=== PATIENT | female | born 1960 | race Caucasian/White ===

== ENCOUNTER 2016-09-20 08:20 | Emergency (ER) | payer BC, OTHER ==
[2016-09-20] MEDS ORDERED: Sodium Chloride 0.9% 1,000 ML ONE (08:44)
[2016-09-20] MEDS ORDERED: Ondansetron HCl/PF 4 MG/2 ML Vial ONE (08:44)
[2016-09-20 08:50] LABS: #Basophils 0.2 thou/uL (0.0-0.2); #Eosinphils 0.1 thou/uL (0.0-0.7); #Lymphocytes 3.2 thou/uL (1.20-3.40); #Neutrophils 10.2 thou/uL (1.40-6.50); %Eosinophils 0.9 % (0.0-10.0); %Lymphocytes 21.6 % (21.0-51.0); %Monocytes 7.1 % (0.0-10.0); %Neutrophils 69.3 % (42.0-75.0); Hemoglobin 16.2 g/dL (12.0-16.0); Mean Corpuscular HGB CONC 33.1 g/dL (32.0-36.0); Mean Corpuscular Hemoglobin 29.6 pg (27.0-31.0); Mean Corpuscular Volume 89.2 fl (81.0-99.0); Platelet Count 189 thou/uL (130-400); RBC Distribution Width 13.1 % (11.5-14.5); White Blood Cell (WBC) Count 14.7 thou/uL (4.8-10.8)
[2016-09-20] MEDS ORDERED: Iopamidol 370 76% 100 ML VIAL ONE (09:00)
[2016-09-20 09:07] LABS: ALT (SGPT) 13 U/L (0-55); AST (SGOT) 15 U/L (5-34); Albumin 3.9 g/dL (3.5-5.0); Alkaline Phosphatase 28 U/L (40-150); Amylase 71 U/L (25-125); Anion Gap 13 mmol/L (10-20); BUN (Urea Nitrogen) 13 mg/dL (9.8-20.1); Bilirubin, Total 0.4 mg/dL (0.2-1.2); CK (CPK) 16 U/L (29-168); Calc. Creatinine Clearance 0 mL/min (70-130); Calcium 8.6 mg/dL (7.8-10.44); Carbon Dioxide 22 mmol/L (22-29); Chloride 107 mmol/L (98-107); Estimated GFR-MDRD 77; Globulin 3.5 g/dL (2.4-3.5); Glucose 102 mg/dL (70-105); Lipase 87 U/L (8-78); Potassium 4.2 mmol/L (3.5-5.1); Protein, Total 7.4 g/dL (6.0-8.3); Sodium 138 mmol/L (136-145)
[2016-09-20 09:08] LABS: CKMB 0.5 ng/mL (0-6.6); Troponin I Less than 0.010 ng/mL (< 0.028)
--- NOTE | 2016-09-20 11:09 | CT ---
EXAM: ABDOMEN CT WITH CONTRAST PELVIC CT WITH CONTRAST: HISTORY: Abdominal and back pain. Nausea. Weakness, onset 5 days ago. COMPARISON: None. TECHNIQUE: Abdomen and pelvic CT are performed with IV contrast. Oral contrast was not administered. Coronal reformatted images are submitted for interpretation. FINDINGS: ABDOMEN CT: Chronic changes of the lung bases. Heart size is normal. No pericardial effusion. The descending thoracic aorta and abdominal aorta have a normal caliber. No periaortic fat stranding. Symmetric attenuation of the psoas muscles. No gastrohepatic, retrocrural, or periportal lymphadenopathy. Intra- and extrahepatic portal vein is patent. Hypodense nodule associated with the left adrenal gland with attenuation coefficient of 7 Hounsfield units. There is a 1.7 x 1.2 cm adenoma. Right adrenal gland is unremarkable. The spleen and panc reas have appropriate enhancement. There is no CT evidence of pancreatitis. Symmetric enhancement of the kidneys. Bilaterally, no obstructive uropathy. There are multiple enhancing masses involving the hepatic parenchyma. The largest lesion is in the posterior segment of the right hepatic lobe, measuring 4. X 5.3 cm. A second lesion in the right pe dicle measures 3.0 x 3.0 cm. There is a lesion in the left hepatic lobe, measuring 2.1 x 1.7 cm. A dditional smaller lesions are identified. No mesenteric mass, lymphadenopathy, free air, or free fluid. Limited evaluation of the alimentary canal due to the lack of oral contrast. Gastric mucosa, duoden um, and small bowel loops are grossly unremarkable. Ileocecal junction is normal. Normal-caliber a ppendix. Nonspecific calcification of the mesentery adjacent to the appendix, likely due to remote insult. There is evidence of diverticulosis, without evidence of diverticulitis. PELVIC CT: Uterus and adnexa are grossly unremarkable. Trace amount of free fluid in the pelvis. No mass, lym phadenopathy, or free air. There are no osteoblastic or osteolytic lesions. IMPRESSION: 1. Multiple hepatic masses, worrisome for malignancy. History states that the patient is seen at [facility]. Correlate with patient's past medical history. 2. No CT evidence of pancreatitis. POS: [facility]
== END 2016-09-20 11:31 | disposition home or self-care (01) ==
LOC: NAV ERS 08:20
DX: K76.89 Other specified diseases of liver (principal); K21.9 Gastro-esophageal reflux disease without esophagitis; I10 Essential (primary) hypertension; J45.909 Unspecified asthma, uncomplicated; F32.9 Major depressive disorder, single episode, unspecified; Z87.891 Personal history of nicotine dependence; Z79.899 Other long term (current) drug therapy
CPT/HCPCS: 36415; 74177; 80053; 82150; 82550; 82553; 83690; 84484; 85025; 93005; 96374; 96375; J2270; J2405; J7050

== ENCOUNTER 2016-12-16 12:56 | Emergency (ER) | payer BC ==
[~2016-12-16 12:56] MED LIST: Iopamidol 370 76% 100 ML VIAL ONE
[2016-12-16] MEDS ORDERED: Nitroglycerin 0.4 MG TAB (25 Tab Bottle) ONE (13:17)
[2016-12-16 13:46] LABS: ALT (SGPT) 12 U/L (8-55); AST (SGOT) 18 U/L (5-34); Albumin 3.9 g/dL (3.5-5.0); Alkaline Phosphatase 25 U/L (40-150); Anion Gap 15 mmol/L (10-20); BUN (Urea Nitrogen) 13 mg/dL (9.8-20.1); Bilirubin, Total 0.3 mg/dL (0.2-1.2); CK (CPK) 30 U/L (29-168); Calc. Creatinine Clearance 0 mL/min (70-130); Calcium 9.1 mg/dL (7.8-10.44); Carbon Dioxide 22 mmol/L (22-29); Chloride 108 mmol/L (98-107); Estimated GFR-MDRD 74; Globulin 3.2 g/dL (2.4-3.5); Glucose 87 mg/dL (70-105); Potassium 4.1 mmol/L (3.5-5.1); Protein, Total 7.1 g/dL (6.0-8.3); Sodium 141 mmol/L (136-145)
[2016-12-16 13:47] LABS: CKMB 0.8 ng/mL (0-6.6); Troponin I Less than 0.010 ng/mL (< 0.028)
[2016-12-16 13:51] LABS: #Basophils 0.1 thou/uL (0.0-0.2); #Eosinphils 0.4 thou/uL (0.0-0.7); #Lymphocytes 2.9 thou/uL (1.20-3.40); #Monocytes 0.7 thou/uL (0.11-0.59); #Neutrophils 6.7 thou/uL (1.40-6.50); %Basophils 1.4 % (0.0-1.0); %Eosinophils 3.9 % (0.0-10.0); %Lymphocytes 26.4 % (21.0-51.0); %Monocytes 6.6 % (0.0-10.0); %Neutrophils 61.7 % (42.0-75.0); Hemoglobin 16.2 g/dL (12.0-16.0); Mean Corpuscular HGB CONC 33.3 g/dL (32.0-36.0); Mean Corpuscular Volume 87.2 fl (81.0-99.0); Mean Platelet Volume 7.9 fL (7.4-10.4); Platelet Count 159 thou/uL (130-400); RBC Distribution Width 11.4 % (11.5-14.5); Red Blood Cell (RBC) Count 5.57 mill/uL (4.20-5.40); White Blood Cell (WBC) Count 10.8 thou/uL (4.8-10.8)
--- NOTE | 2016-12-16 14:54 | RAD ---
RADIOGRAPH CHEST 1 VIEW: HISTORY: A 56-year-old female with acute mid sternal chest pain. FINDINGS: There is hyperinflation of the lungs, consistent with COPD. There is no evidence of air space densi ty, pneumothorax, or pulmonary edema. The lateral costophrenic angles are sharp. IMPRESSION: 1) No acute pulmonary findings. 2) Emphysema. jackie [] POS: [facility]
--- NOTE | 2016-12-16 16:28 | CT ---
CT ANGIOGRAM THORAX WITH IV CONTRAST AND 3D RECONSTRUCTIONS 12/16/2016 HISTORY: Mid sternal chest pain, which started in . The patient states the pain is getting worse and started approximately four hours ago. FINDINGS: No filling defects are see in the pulmonary arteries to suggest a pulmonary embolus. The thoracic a jaime is normal in caliber without evidence of an aortic dissection. There are mild emphysematous changes within the lungs bilaterally, greater in the upper lobes. Ther e is bibasilar atelectasis. No discrete pulmonary nodule, mass, or pleural effusion is seen. There is a hypodense mass, incompletely imaged or evaluated, in the right hepatic lobe. The margins of the mass are difficult to discern on this examination, but the mass measures approximately 4.7 c m. Multiple hypodense masses were seen in each lobe of the liver on prior CT abdomen on 09/20/2016. Additional hypodense masses on this exam are not as well seen, although there is a hypodense mass with slight increased density surrounding a lesion in the most superior-anterior aspect of the later al segment of the left hepatic lobe, also seen on prior exam. There is a hypodense, cystic appearing structure, measuring 1.5 cm, in the subcutaneous soft tissues , near the level of the skin surface, at the mid chest, which may represent a small sebaceous cyst. There is an additional increased density mass seen at the posterolateral aspect of the right upper chest, at the level of the body of the scapula, measuring 2.8 cm, which is incompletely imaged, but may represent a sebaceous cyst as well. IMPRESSION: 1. No CT evidence of a pulmonary embolus. 2. Multiple hypodense masses in the liver, better visualized on the prior scan on 09/20/2016, sugge sting metastatic disease. The mass in the right hepatic lobe does appear larger in size, although t he margins are indistinct on this exam due to phase of contrast enhancement. 3. Chronic obstructive pulmonary disease. 5. Stable left adrenal gland adenoma. 6. Hypodense amd hyperdense cystic structures in subcutaneous soft tissues posterior chest which ma y represent sebaceous cysts. POS: [facility]
== END 2016-12-16 15:50 | disposition short-term general hospital (02) ==
LOC: NAV ERS 12:56
DX: R07.9 Chest pain, unspecified (principal); K21.9 Gastro-esophageal reflux disease without esophagitis; I10 Essential (primary) hypertension; M06.9 Rheumatoid arthritis, unspecified; J45.909 Unspecified asthma, uncomplicated; F32.9 Major depressive disorder, single episode, unspecified; Z87.891 Personal history of nicotine dependence; Z79.899 Other long term (current) drug therapy
CPT/HCPCS: 36415; 71010; 71275; 80053; 82553; 84484; 85025; 93005; 94760; 96374; J2270

== ENCOUNTER 2017-01-07 14:42 | Outpatient (CLI) | payer BC ==
[2017-01-07 15:44] LABS: #Basophils 0.2 thou/uL (0.0-0.2); #Eosinphils 0.3 thou/uL (0.0-0.7); #Lymphocytes 3.1 thou/uL (1.20-3.40); #Neutrophils 7.2 thou/uL (1.40-6.50); %Basophils 1.4 % (0.0-1.0); %Eosinophils 2.4 % (0.0-10.0); %Lymphocytes 26.2 % (21.0-51.0); %Monocytes 8.6 % (0.0-10.0); %Neutrophils 61.4 % (42.0-75.0); Hemoglobin 16.1 g/dL (12.0-16.0); Mean Corpuscular HGB CONC 32.4 g/dL (32.0-36.0); Mean Corpuscular Hemoglobin 28.5 pg (27.0-31.0); Mean Corpuscular Volume 88.1 fl (81.0-99.0); Mean Platelet Volume 7.9 fL (7.4-10.4); Platelet Count 171 thou/uL (130-400); RBC Distribution Width 11.7 % (11.5-14.5); Red Blood Cell (RBC) Count 5.66 mill/uL (4.20-5.40); White Blood Cell (WBC) Count 11.7 thou/uL (4.8-10.8)
[2017-01-07 16:02] LABS: ALT (SGPT) 10 U/L (8-55); AST (SGOT) 18 U/L (5-34); Albumin 4.1 g/dL (3.5-5.0); Alkaline Phosphatase 31 U/L (40-150); Anion Gap 16 mmol/L (10-20); BUN (Urea Nitrogen) 12 mg/dL (9.8-20.1); Bilirubin, Total 0.6 mg/dL (0.2-1.2); Calc. Creatinine Clearance 0 mL/min (70-130); Calcium 9.5 mg/dL (7.8-10.44); Carbon Dioxide 24 mmol/L (22-29); Chloride 104 mmol/L (98-107); Estimated GFR-MDRD 78; Globulin 2.4 g/dL (2.4-3.5); Glucose 89 mg/dL (70-105); Lipase 5 U/L (8-78); Potassium 4.1 mmol/L (3.5-5.1); Protein, Total 6.5 g/dL (6.0-8.3); Sodium 140 mmol/L (136-145)
== END 2017-01-07 14:43 | disposition home or self-care (01) ==
LOC: NAV LAB 14:42 → NAV ERS 14:42 → NAV LAB 14:43
DX: R10.31 Right lower quadrant pain (principal)
CPT/HCPCS: 80053; 83690; 85025

== ENCOUNTER 2017-06-13 10:02 | Outpatient (CLI) | payer BC ==
[2017-06-13 10:43] LABS: ALT (SGPT) 18 U/L (8-55); AST (SGOT) 26 U/L (5-34); Albumin 3.6 g/dL (3.5-5.0); Alkaline Phosphatase 42 U/L (40-150); Anion Gap 16 mmol/L (10-20); BUN (Urea Nitrogen) 10 mg/dL (9.8-20.1); Bilirubin, Total 0.5 mg/dL (0.2-1.2); Calc. Creatinine Clearance 0 mL/min (70-130); Calcium 9.4 mg/dL (7.8-10.44); Carbon Dioxide 26 mmol/L (22-29); Chloride 101 mmol/L (98-107); Estimated GFR-MDRD 80; Globulin 3.3 g/dL (2.4-3.5); Glucose 85 mg/dL (70-105); Potassium 4.5 mmol/L (3.5-5.1); Protein, Total 6.9 g/dL (6.0-8.3); Sodium 138 mmol/L (136-145)
[2017-06-13 10:46] LABS: #Basophils 0.2 thou/uL (0.0-0.2); #Eosinphils 1.1 thou/uL (0.0-0.7); #Lymphocytes 1.9 thou/uL (1.20-3.40); #Monocytes 1.2 thou/uL (0.11-0.59); %Basophils 1.6 % (0.0-1.0); %Eosinophils 8.7 % (0.0-10.0); %Lymphocytes 15.4 % (21.0-51.0); %Monocytes 9.7 % (0.0-10.0); %Neutrophils 64.6 % (42.0-75.0); Hemoglobin 15.8 g/dL (12.0-16.0); Mean Corpuscular HGB CONC 32.5 g/dL (32.0-36.0); Mean Corpuscular Hemoglobin 27.8 pg (27.0-31.0); Mean Corpuscular Volume 85.6 fl (81.0-99.0); Mean Platelet Volume 9.4 fL (7.4-10.4); Platelet Count 185 thou/uL (130-400); RBC Distribution Width 11.8 % (11.5-14.5); White Blood Cell (WBC) Count 12.4 thou/uL (4.8-10.8)
--- NOTE | 2017-06-13 12:30 | RAD ---
RADIOGRAPH OF CHEST TWO VIEWS: INDICATIONS: Bronchitis. FINDINGS: There is interstitial prominence of each lung. No lobar consolidation or effusion. The cardiomedias tinal silhouette is normal in size. IMPRESSION: Interstitial prominence bilaterally. This could be on the basis of viral bronchiolitis and/or a comp onent of edema. Recommend imaging followup to confirm resolution. POS: [facility]
== END 2017-06-13 10:03 | disposition home or self-care (01) ==
LOC: NAV LAB 10:02
PROVIDERS: ATTEND Family Medicine
DX: J40 Bronchitis, not specified as acute or chronic (principal); J84.9 Interstitial pulmonary disease, unspecified
CPT/HCPCS: 36415; 71020; 80053; 85025

== ENCOUNTER 2017-07-01 10:01 | Emergency (ER) | payer BC ==
[2017-07-01] MEDS ORDERED: Sodium Chloride 0.9% 1,000 ML ONE ×2 (10:28→11:53)
[2017-07-01] MEDS ORDERED: Ondansetron HCl/PF 4 MG/2 ML Vial ONE ×2 (10:28→11:18)
[2017-07-01 10:46] LABS: #Basophils 0.2 thou/uL (0.0-0.2); #Eosinphils 0.8 thou/uL (0.0-0.7); #Lymphocytes 1.8 thou/uL (1.20-3.40); #Monocytes 1.1 thou/uL (0.11-0.59); #Neutrophils 4.9 thou/uL (1.40-6.50); %Basophils 2.2 % (0.0-1.0); %Eosinophils 8.9 % (0.0-10.0); %Lymphocytes 20.1 % (21.0-51.0); %Monocytes 12.9 % (0.0-10.0); %Neutrophils 55.9 % (42.0-75.0); Mean Corpuscular Hemoglobin 27.1 pg (27.0-31.0); Mean Corpuscular Volume 84.6 fl (81.0-99.0); Mean Platelet Volume 9.8 fL (7.4-10.4); Platelet Count 148 thou/uL (130-400); RBC Distribution Width 12.3 % (11.5-14.5); Red Blood Cell (RBC) Count 5.89 mill/uL (4.20-5.40); White Blood Cell (WBC) Count 8.9 thou/uL (4.8-10.8)
[2017-07-01 11:02] LABS: ALT (SGPT) 22 U/L (8-55); AST (SGOT) 41 U/L (5-34); Albumin 3.7 g/dL (3.5-5.0); Alkaline Phosphatase 38 U/L (40-150); Anion Gap 16 mmol/L (10-20); BUN (Urea Nitrogen) 20 mg/dL (9.8-20.1); Bilirubin, Total 0.6 mg/dL (0.2-1.2); CK (CPK) 10 U/L (29-168); CKMB 0.3 ng/mL (0-6.6); Calc. Creatinine Clearance 0 mL/min (70-130); Calcium 9.3 mg/dL (7.8-10.44); Carbon Dioxide 24 mmol/L (22-29); Chloride 99 mmol/L (98-107); Estimated GFR-MDRD 76; Globulin 3.5 g/dL (2.4-3.5); Glucose 103 mg/dL (70-105); Lipase 15 U/L (8-78); Potassium 4.7 mmol/L (3.5-5.1); Protein, Total 7.2 g/dL (6.0-8.3); Sodium 134 mmol/L (136-145); Troponin I Less than 0.010 ng/mL (< 0.028)
--- NOTE | 2017-07-01 11:38 | RAD ---
PA AND LATERAL VIEWS CHEST: HISTORY: Headache, body aches, cough. FINDINGS: Comparison is made with the exam of 06/13/17. The heart size is normal. The lungs are expanded without focal areas of consolidation, pneumothorax, or pleural effusions. Mild chronic changes are again seen. IMPRESSION: No radiographic evidence of acute cardiopulmonary process. POS: [facility]
[2017-07-01 11:55] LABS: Bilirubin Large (Negative); Blood, Urine Negative (Negative); Clarity Clear (Clear); Glucose, Urine (Dipstick) Negative (Negative); Leukocyte Negative (Negative); Nitrite Negative (Negative); Protein, Urine (Dipstick) Trace mg/dL (Neg-Trace); Specific Gravity, Urine 1.025 (1.005-1.030); Urobilinogen 0.2 mg/dL (0.2-1.0); pH, Urine 5.5 (5.0-9.0)
[2017-07-01] MEDS ORDERED: Oseltamivir 75 MG CAP ONE (12:20)
== END 2017-07-01 12:28 | disposition home or self-care (01) ==
LOC: NAV ERS 10:01
DX: J11.1 Influenza due to unidentified influenza virus with other respiratory manifestations (principal); R11.2 Nausea with vomiting, unspecified; I10 Essential (primary) hypertension; J45.909 Unspecified asthma, uncomplicated; F32.9 Major depressive disorder, single episode, unspecified; F17.210 Nicotine dependence, cigarettes, uncomplicated; Z79.899 Other long term (current) drug therapy
CPT/HCPCS: 36415; 71046; 80053; 81003; 82550; 82553; 83690; 84484; 85025; 96361; 96374; 96376; J2405; J7050

== ENCOUNTER 2017-08-12 05:29 | Emergency (ER) | payer BC ==
[2017-08-12] MEDS ORDERED: Ondansetron HCl/PF 4 MG/2 ML Vial ONE ×2 (05:41→05:43)
[2017-08-12 06:19] LABS: ALT (SGPT) 12 U/L (8-55); AST (SGOT) 34 U/L (5-34); Albumin 3.4 g/dL (3.5-5.0); Alkaline Phosphatase 46 U/L (40-150); Anion Gap 17 mmol/L (10-20); BUN (Urea Nitrogen) 11 mg/dL (9.8-20.1); Bilirubin, Total 0.6 mg/dL (0.2-1.2); Calc. Creatinine Clearance 0 mL/min (70-130); Calcium 9.2 mg/dL (7.8-10.44); Carbon Dioxide 25 mmol/L (22-29); Chloride 102 mmol/L (98-107); Estimated GFR-MDRD 78; Globulin 3.4 g/dL (2.4-3.5); Glucose 87 mg/dL (70-105); Lipase 7 U/L (8-78); Potassium 4.1 mmol/L (3.5-5.1); Protein, Total 6.8 g/dL (6.0-8.3); Sodium 140 mmol/L (136-145)
[2017-08-12 06:22] LABS: CKMB 0.7 ng/mL (0-6.6); Troponin I Less than 0.010 ng/mL (< 0.028)
[2017-08-12 06:58] LABS: #Basophils 0.3 thou/uL (0.0-0.2); #Eosinphils 0.3 thou/uL (0.0-0.7); #Lymphocytes 2.1 thou/uL (1.20-3.40); #Monocytes 1.3 thou/uL (0.11-0.59); %Basophils 2.1 % (0.0-1.0); %Eosinophils 2.2 % (0.0-10.0); %Lymphocytes 17.9 % (21.0-51.0); %Monocytes 10.7 % (0.0-10.0); %Neutrophils 67.1 % (42.0-75.0); Hemoglobin 15.7 g/dL (12.0-16.0); Mean Corpuscular HGB CONC 30.6 g/dL (32.0-36.0); Mean Corpuscular Hemoglobin 26.4 pg (27.0-31.0); Mean Corpuscular Volume 86.2 fl (81.0-99.0); Mean Platelet Volume 9.4 fL (7.4-10.4); Platelet Count 203 thou/uL (130-400); RBC Distribution Width 12.6 % (11.5-14.5); Red Blood Cell (RBC) Count 5.96 mill/uL (4.20-5.40); White Blood Cell (WBC) Count 11.8 thou/uL (4.8-10.8)
== END 2017-08-12 07:57 | disposition home or self-care (01) ==
LOC: NAV ERS 05:29
DX: E86.0 Dehydration (principal); R11.2 Nausea with vomiting, unspecified; R19.7 Diarrhea, unspecified; C90.00 Multiple myeloma not having achieved remission; C69.90 Malignant neoplasm of unspecified site of unspecified eye; C78.7 Secondary malignant neoplasm of liver and intrahepatic bile duct; F17.210 Nicotine dependence, cigarettes, uncomplicated; F32.9 Major depressive disorder, single episode, unspecified; I10 Essential (primary) hypertension; J45.909 Unspecified asthma, uncomplicated; M06.9 Rheumatoid arthritis, unspecified; Z79.899 Other long term (current) drug therapy; Z71.6 Tobacco abuse counseling
CPT/HCPCS: 80053; 82553; 83690; 84484; 85025; 96361; 96374; J2405

== ENCOUNTER 2017-09-08 09:43 | Emergency (ER) | payer BC ==
[2017-09-08] MEDS ORDERED: Sodium Chloride 0.9% 1,000 ML ONE (10:31)
[2017-09-08 10:48] LABS: Bilirubin Large (Negative); Blood, Urine Negative (Negative); Clarity Slightly Cloudy (Clear); Glucose, Urine (Dipstick) 100 mg/dL (Negative); Leukocyte Negative (Negative); Nitrite Positive (Negative); Protein, Urine (Dipstick) 100 mg/dL (Neg-Trace)
[2017-09-08 10:50] LABS: #Basophils 0.3 thou/uL (0.0-0.2); #Eosinphils 0.2 thou/uL (0.0-0.7); #Lymphocytes 2.3 thou/uL (1.20-3.40); #Monocytes 1.2 thou/uL (0.11-0.59); #Neutrophils 7.2 thou/uL (1.40-6.50); %Basophils 2.7 % (0.0-1.0); %Eosinophils 1.5 % (0.0-10.0); %Lymphocytes 20.9 % (21.0-51.0); %Monocytes 10.3 % (0.0-10.0); %Neutrophils 64.7 % (42.0-75.0); Hemoglobin 14.8 g/dL (12.0-16.0); Mean Corpuscular HGB CONC 30.5 g/dL (32.0-36.0); Mean Corpuscular Hemoglobin 25.8 pg (27.0-31.0); Mean Corpuscular Volume 84.4 fl (81.0-99.0); Mean Platelet Volume 10.7 fL (7.4-10.4); Platelet Count 164 thou/uL (130-400); RBC Distribution Width 12.6 % (11.5-14.5); Red Blood Cell (RBC) Count 5.75 mill/uL (4.20-5.40); White Blood Cell (WBC) Count 11.2 thou/uL (4.8-10.8)
[2017-09-08 11:10] LABS: CKMB 0.7 ng/mL (0-6.6); Troponin I Less than 0.010 ng/mL (< 0.028)
[2017-09-08 11:13] LABS: Bacteria/HPF None Seen HPF (None Seen); Crystals/HPF 1+ CA OXALATE HPF (Negative); RBC/HPF 0-3 HPF (0-3); Squamous Epithelial 0-3 HPF (0-3); WBC/HPF 0-3 HPF (0-3)
[2017-09-08 11:44] LABS: ALT (SGPT) 18 U/L (8-55); AST (SGOT) 52 U/L (5-34); Albumin 3.1 g/dL (3.5-5.0); Alkaline Phosphatase 63 U/L (40-150); Anion Gap 16 mmol/L (10-20); BUN (Urea Nitrogen) 10 mg/dL (9.8-20.1); Bilirubin, Total 0.9 mg/dL (0.2-1.2); Calc. Creatinine Clearance 0 mL/min (70-130); Calcium 8.6 mg/dL (7.8-10.44); Carbon Dioxide 23 mmol/L (22-29); Chloride 101 mmol/L (98-107); Estimated GFR-MDRD Greater than 90; Globulin 3.3 g/dL (2.4-3.5); Glucose 82 mg/dL (70-105); Protein, Total 6.4 g/dL (6.0-8.3); Sodium 136 mmol/L (136-145)
--- NOTE | 2017-09-08 11:58 | RAD ---
2 VIEWS CHEST: Date: 09/08/17 PROVIDED CLINICAL HISTORY: Rhonchi and cough. FINDINGS: Comparison is made with the examination dated 07/01/17. Cardiac and mediastinal silhouette is unchanged in appearance. Several pulmonary nodules are seen, wh ich may reflect metastatic disease. No pleural fluid or pneumothorax apparent. No evidence for focal consolidation to suggest pneumonia. IMPRESSION: 1. Pulmonary nodules may reflect metastatic disease. Nonemergent follow-up chest CT recommended. 2. No focal air space disease to suggest pneumonia. POS: [facility]
== END 2017-09-08 13:15 | disposition home or self-care (01) ==
LOC: NAV ERS 09:43
DX: E86.0 Dehydration (principal); C78.7 Secondary malignant neoplasm of liver and intrahepatic bile duct; I10 Essential (primary) hypertension; J45.909 Unspecified asthma, uncomplicated; M06.9 Rheumatoid arthritis, unspecified; F32.9 Major depressive disorder, single episode, unspecified; F17.210 Nicotine dependence, cigarettes, uncomplicated; Z85.840 Personal history of malignant neoplasm of eye; Z79.899 Other long term (current) drug therapy
CPT/HCPCS: 36415; 71046; 80053; 81003; 81015; 82553; 84484; 85025; 87040; 96361; 96374; J2920; J7050; J7620

== ENCOUNTER 2017-09-12 09:58 | Outpatient (CLI) | payer BC ==
[2017-09-12 10:40] LABS: #Basophils 0.3 thou/uL (0.0-0.2); #Eosinphils 0.1 thou/uL (0.0-0.7); #Lymphocytes 3.3 thou/uL (1.20-3.40); #Monocytes 2.2 thou/uL (0.11-0.59); #Neutrophils 12.6 thou/uL (1.40-6.50); %Basophils 1.4 % (0.0-1.0); %Eosinophils 0.3 % (0.0-10.0); %Neutrophils 68.4 % (42.0-75.0); Hemoglobin 14.4 g/dL (12.0-16.0); Mean Corpuscular HGB CONC 31.5 g/dL (32.0-36.0); Mean Corpuscular Hemoglobin 26.4 pg (27.0-31.0); Mean Corpuscular Volume 83.9 fl (81.0-99.0); Mean Platelet Volume 9.9 fL (7.4-10.4); Platelet Count 157 thou/uL (130-400); RBC Distribution Width 12.7 % (11.5-14.5); Red Blood Cell (RBC) Count 5.44 mill/uL (4.20-5.40); White Blood Cell (WBC) Count 18.4 thou/uL (4.8-10.8)
[2017-09-12 10:55] LABS: ALT (SGPT) 30 U/L (8-55); AST (SGOT) 72 U/L (5-34); Albumin 3.2 g/dL (3.5-5.0); Alkaline Phosphatase 85 U/L (40-150); Anion Gap 16 mmol/L (10-20); BUN (Urea Nitrogen) 10 mg/dL (9.8-20.1); Bilirubin, Total 0.7 mg/dL (0.2-1.2); Calc. Creatinine Clearance 0 mL/min (70-130); Calcium 9.1 mg/dL (7.8-10.44); Carbon Dioxide 25 mmol/L (22-29); Chloride 102 mmol/L (98-107); Estimated GFR-MDRD Greater than 90; Globulin 2.9 g/dL (2.4-3.5); Glucose 75 mg/dL (70-105); Potassium 4.9 mmol/L (3.5-5.1); Protein, Total 6.1 g/dL (6.0-8.3); Sodium 138 mmol/L (136-145)
== END 2017-09-12 09:59 | disposition home or self-care (01) ==
LOC: NAV LAB 09:58
PROVIDERS: ATTEND Family Medicine
DX: C43.9 Malignant melanoma of skin, unspecified (principal); D72.829 Elevated white blood cell count, unspecified; R60.9 Edema, unspecified
CPT/HCPCS: 36415; 80053; 85025

== ENCOUNTER 2017-09-16 08:37 | Outpatient (CLI) | payer BC ==
[2017-09-16] MEDS ORDERED: Iopamidol 370 76% 100 ML VIAL ONE (09:00)
--- NOTE | 2017-09-16 12:05 | CT ---
CT CHEST WITH CONTRAST CT ABDOMEN WITH CONTRAST CT PELVIS WITH CONTRAST: Date: 09/16/17 HISTORY: Malignant melanoma. COMPARISON: CT abdomen and pelvis dated 04/06/17. FINDINGS: There is moderate pulmonary emphysema. Numerous pulmonary nodules are scattered throughout the chest. Relative to the CTA chest of 12/16/16, pulmonary nodules have increased in number and size. The larg est nodule within the lingula now measures 1.4 x 1.0 cm, previously 0.9 x 0.6 cm. There are innumerab le small scattered pulmonary nodules throughout the lungs. Right axillary adenopathy is new. Superficial subcutaneous soft tissue nodule of the right shoulder m easures up to 4.5 cm in length, previously 2.7 cm. There are scattered smaller soft tissue implants, although these have markedly increased in number from the comparison examination. Hepatic metastatic disease is slightly worsened. There are multiple areas of necrosis. A large necrot ic mass in the right lower lobe has increased in size. There is bulging of the hepatic capsule. Mild portal venous hypertension. 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 There is displacement of the right kidney to midline due to mass effect from the liver adelina s and enlargement. Left adrenal mass is similar. There is mild third spacing of fluid. Mass effect upon the right colon from the liver metastasis. The re is motion artifact of the ileum. Old left distal clavicular fracture. IMPRESSION: Extensive progression of metastatic disease throughout the chest, abdomen, and pelvis. There is also thrombosis of the right portal vein, which may be a malignant thrombus. Mass effect upon the right ki dney, which is now in midline due to the advanced disease of the right lobe of the liver with multipl e areas of necrosis. Soft tissue deposits have progressed. There is also mild third spacing of fluid which could be sequelae of underlying replacement of a significant portion of the hepatic parenchyma with malignant process, as well as portal vein thrombosis. POS: [facility]
== END 2017-09-16 08:38 | disposition home or self-care (01) ==
LOC: NAV CT 08:37
PROVIDERS: ATTEND Family Medicine
DX: C79.9 Secondary malignant neoplasm of unspecified site (principal); I81 Portal vein thrombosis; N28.89 Other specified disorders of kidney and ureter; K76.89 Other specified diseases of liver
CPT/HCPCS: 71260; 74177